=== PATIENT | male | born 1965 | race African-American/Black ===

== ENCOUNTER 2016-12-22 09:24 | Observation (INO) | payer MEDICARE, MEDICAID ==
[~2016-12-22] VITALS: Ht 180.3 cm; Wt 142.4 kg
[~2016-12-22 09:24] MED LIST: ACARBOSE PO; ASPI-867; COR25 PO; FURO-151 PO; GABA-531 PO; HUM10VIA6 SQ; HYDR-523 PO; LISI-604 PO; LOSA25TA12; METO25TA6 PO; METO5TAB99 PO; NITR0.4T3 SL; OMEP40CA34 PO; SIMV20TA6 PO; SITA100T6 PO
[2016-12-22] MEDS ORDERED: ALBUTEROL (0.083%) 2.5MG/3ML NEB HHN STA (10:22)
[2016-12-22] MEDS ORDERED: NITROGLYCERIN OINT 1GM/INCH UDPKT TD ONE (10:30)
[2016-12-22] MEDS ORDERED: FUROSEMIDE 40MG/4ML VIAL IV ONE (10:30)
[2016-12-22] MEDS ORDERED: ASPIRIN 81MG TABLET PO ONE (10:30)
[2016-12-22 10:35] LABS: BASOPHILS % 0.7 % (0.0-2.0); EOSINOPHILS % 0.9 % (0.0-5.0); HEMOGLOBIN. 14.8 g/dL (14.0-18.0); LYMPHOCYTES % 19.5 % (20.0-50.0); MEAN CORPUSCULAR HEMOGLOBIN 26.5 pg (28.0-32.0); MEAN CORPUSCULAR VOLUME 82.5 fL (80.0-94.0); MEAN PLATELET VOLUME 9.5 fl (7.4-10.4); MONOCYTES % 7.3 % (2.0-8.0); NEUTROPHILS % 71.6 % (40.0-76.0); PLATELET 173 x1000/uL (130-400); RED BLOOD CELL COUNT 5.58 mill/uL (4.7-6.1); RED CELL DISTRIBUTION WIDTH 16.5 % (11.6-14.6)
[2016-12-22 10:41] LABS: D-DIMER 1.58 mg/L FEU (<0.50); INR 1.1; PROTHROMBIN TIME 11.8 sec
[2016-12-22 10:42] LABS: CARBON DIOXIDE 23 mEq/L (21-32); CHLORIDE 110 mEq/L (98-107); ETHANOL BLOOD < 10 mg/dL
[2016-12-22 10:48] LABS: TROPONIN I 0.27 ng/mL (0.00-0.04)
[2016-12-22 11:41] LABS: CLARITY URINE CLEAR (CLEAR); COLOR URINE YELLOW (YELLOW); GLUCOSE URINE NEGATIVE (NEGATIVE); KETONES URINE NEGATIVE (NEGATIVE); LEUKOCYTE ESTERASE URINE NEGATIVE (NEGATIVE); NITRITE URINE NEGATIVE (NEGATIVE); OCCULT BLOOD URINE NEGATIVE (NEGATIVE); PROTEIN URINE NEGATIVE (NEGATIVE); SPECIFIC GRAVITY URINE 1.008 (1.005-1.030)
[2016-12-22 11:53] LABS: *AMPHETAMINES SCREEN URINE NEGATIVE (NEGATIVE); *BARBITURATES SCREEN URINE NEGATIVE (NEGATIVE); *BENZODIAZEPINES SCREEN URINE NEGATIVE (NEGATIVE); *COCAINE SCREEN URINE PRESUMTIVE POSITIVE (NEGATIVE); CANNABINOID URINE SCREEN NEGATIVE (NEGATIVE); METHADONE URINE SCREEN NEGATIVE (NEGATIVE); OPIATES URINE SCREEN NEGATIVE (NEGATIVE); PHENCYCLIDINE URINE SCREEN NEGATIVE (NEGATIVE)
[2016-12-22] MEDS ORDERED: HYDROCODONE/ACETAMINOPHEN 5/325MG TABLET PO PRN (14:45)
[2016-12-22] MEDS ORDERED: CLONIDINE 0.1MG TABLET PO PRN (14:45)
[2016-12-22] MEDS ORDERED: FUROSEMIDE 40MG/4ML VIAL IV SCH (14:45)
[2016-12-22] MEDS ORDERED: ONDANSETRON HCL 4MG/2ML VIAL IV PRN (14:45)
[2016-12-22] MEDS ORDERED: ACETAMINOPHEN 325MG TABLET PO PRN (14:45)
[2016-12-22] MEDS ORDERED: ENOXAPARIN 40MG/0.4ML SYR SUBCUT SCH (14:45)
[2016-12-22 16:10] LABS: CHLORIDE 110 mEq/L (98-107)
[2016-12-22 16:16] LABS: CARBON DIOXIDE 27 mEq/L (21-32)
[2016-12-22 16:28] VITALS: BP 139/104
[2016-12-22] MEDS ORDERED: ASPI-1035 PO (17:15)
[2016-12-22] MEDS: POTASSIUM CHLORIDE 20MEQ TABLET SR PO SCH (17:25)
[2016-12-22] MEDS: FUROSEMIDE 40MG/4ML VIAL IV SCH (17:25)
[2016-12-22] MEDS: METHYLPREDNISOLONE SOD SUCC 40 MG/ML VIAL IV SCH (17:25)
[2016-12-22] MEDS ORDERED: LEVOFLOXACIN 500MG PREMIX 100 ML IV SCH (18:00)
[2016-12-22] MEDS ORDERED: DEXTROSE 50% WATER 50ML SYRINGE IV PRN (19:30)
[2016-12-22 20:00] VITALS: BP 117/84
[2016-12-22] MEDS: AMLODIPINE 2.5MG TABLET PO SCH (20:57)
[2016-12-22] MEDS: ENOXAPARIN 40MG/0.4ML SYR SUBCUT SCH (20:58)
[2016-12-22] MEDS: NITROGLYCERIN OINT 1GM/INCH UDPKT TD SCH (20:58)
[2016-12-22] MEDS: INSULIN LISPRO 100 UNITS/ML SUBCUT SCH (21:00)
[2016-12-22] MEDS: BLOOD SUGAR DIAGNOSTIC STRIP TEST SCH (21:02)
[2016-12-22 22:38] LABS: TROPONIN I 0.25 ng/mL (0.00-0.04)
[2016-12-23] VITALS: BP 120/92
[2016-12-23] MEDS: IPRATROPIUM/ALBUTEROL 0.5-3(2.5)MG/3ML NEB INH PRN ×4 (02:08→16:09)
[2016-12-23 04:00] VITALS: BP 116/77
[2016-12-23] MEDS: NITROGLYCERIN OINT 1GM/INCH UDPKT TD SCH (06:10)
[2016-12-23] MEDS: BLOOD SUGAR DIAGNOSTIC STRIP TEST SCH ×4 (06:10→20:45)
[2016-12-23] MEDS: INSULIN LISPRO 100 UNITS/ML SUBCUT SCH ×4 (06:19→21:09)
[2016-12-23 06:44] LABS: BASOPHILS % 0.1 % (0.0-2.0); HEMATOCRIT. 42.1 % (42.0-52.0); HEMOGLOBIN. 13.5 g/dL (14.0-18.0); LYMPHOCYTES % 10.7 % (20.0-50.0); MEAN CORPUSCULAR HEMOGLOBIN 26.3 pg (28.0-32.0); MEAN CORPUSCULAR VOLUME 82.1 fL (80.0-94.0); MEAN PLATELET VOLUME 9.8 fl (7.4-10.4); MONOCYTES % 3.9 % (2.0-8.0); NEUTROPHILS % 85.3 % (40.0-76.0); PLATELET 161 x1000/uL (130-400); RED BLOOD CELL COUNT 5.12 mill/uL (4.7-6.1); RED CELL DISTRIBUTION WIDTH 16.4 % (11.6-14.6)
[2016-12-23 06:50] LABS: CHLORIDE 107 mEq/L (98-107)
[2016-12-23 07:08] LABS: CARBON DIOXIDE 26 mEq/L (21-32); CREATINE KINASE 98 IU/L (39-308); HDL CHOLESTEROL 48 mg/dL (40-59); LDL CHOLESTEROL 78 mg/dL (5-100); T4 FREE 1.09 ng/dL (0.76-1.46); TROPONIN I 0.24 ng/mL (0.00-0.04)
[2016-12-23 08:00] VITALS: BP 132/98
[2016-12-23] MEDS: ASPIRIN 81MG EC TABLET PO SCH (08:23)
[2016-12-23] MEDS: ENOXAPARIN 40MG/0.4ML SYR SUBCUT SCH ×2 (08:23→20:55)
[2016-12-23] MEDS: METHYLPREDNISOLONE SOD SUCC 40 MG/ML VIAL IV SCH ×2 (08:23→16:54)
[2016-12-23] MEDS: FUROSEMIDE 40MG/4ML VIAL IV SCH ×2 (08:23→16:54)
[2016-12-23] MEDS: POTASSIUM CHLORIDE 20MEQ TABLET SR PO SCH ×2 (08:24→16:54)
[2016-12-23] MEDS: AMLODIPINE 2.5MG TABLET PO SCH ×2 (08:25→20:55)
[2016-12-23] MEDS: GUAIFENESIN 200MG/10ML SUGAR FREE UDC PO PRN ×3 (08:55→20:54)
[2016-12-23 12:00] VITALS: BP 115/81
[2016-12-23 12:28] LABS: PLATELET ESTIMATE NORMAL
[2016-12-23] MEDS: NITROGLYCERIN 2% 30 GM OINT. TOP SCH ×2 (14:27→21:01)
[2016-12-23 16:00] VITALS: BP 117/80
[2016-12-23] MEDS ORDERED: LEVOFLOXACIN 500MG PREMIX 100 ML IV SCH (18:00)
[2016-12-23 20:00] VITALS: BP 114/75
[2016-12-24] VITALS: BP 123/82
[2016-12-24 04:00] VITALS: BP 108/74
[2016-12-24 06:28] LABS: HEMATOCRIT. 44.5 % (42.0-52.0); HEMOGLOBIN. 14.3 g/dL (14.0-18.0); LYMPHOCYTES % 9.5 % (20.0-50.0); MEAN CORPUSCULAR HEMOGLOBIN 26.5 pg (28.0-32.0); MEAN CORPUSCULAR VOLUME 82.5 fL (80.0-94.0); MEAN PLATELET VOLUME 9.8 fl (7.4-10.4); MONOCYTES % 6.2 % (2.0-8.0); NEUTROPHILS % 84.3 % (40.0-76.0); PLATELET 179 x1000/uL (130-400); RED CELL DISTRIBUTION WIDTH 16.8 % (11.6-14.6)
[2016-12-24] MEDS: BLOOD SUGAR DIAGNOSTIC STRIP TEST SCH ×2 (06:28→12:02)
[2016-12-24] MEDS: NITROGLYCERIN 2% 30 GM OINT. TOP SCH ×2 (06:32→13:15)
[2016-12-24] MEDS: INSULIN LISPRO 100 UNITS/ML SUBCUT SCH ×2 (06:37→12:21)
[2016-12-24 07:26] LABS: CARBON DIOXIDE 28 mEq/L (21-32); CHLORIDE 105 mEq/L (98-107); TROPONIN I 0.23 ng/mL (0.00-0.04)
[2016-12-24] MEDS: IPRATROPIUM/ALBUTEROL 0.5-3(2.5)MG/3ML NEB INH PRN (07:48)
[2016-12-24 08:00] VITALS: BP 105/76
[2016-12-24] MEDS: FUROSEMIDE 40MG/4ML VIAL IV SCH (08:34)
[2016-12-24] MEDS: METHYLPREDNISOLONE SOD SUCC 40 MG/ML VIAL IV SCH (08:34)
[2016-12-24] MEDS: ASPIRIN 81MG EC TABLET PO SCH (08:35)
[2016-12-24] MEDS: ENOXAPARIN 40MG/0.4ML SYR SUBCUT SCH (08:35)
[2016-12-24] MEDS: POTASSIUM CHLORIDE 20MEQ TABLET SR PO SCH (08:35)
[2016-12-24] MEDS: AMLODIPINE 2.5MG TABLET PO SCH (08:35)
[2016-12-24] MEDS: GUAIFENESIN 200MG/10ML SUGAR FREE UDC PO PRN (10:16)
[2016-12-24 10:21] VITALS: BP 106/82
[2016-12-24 12:00] VITALS: BP 106/82
== END 2016-12-24 14:52 | disposition home or self-care (01) ==
LOC: ER 11:05 → 5WST 11:06 → INTOOBSV 11:06
PROVIDERS: ADMIT Internal Medicine; ATTEND Internal Medicine
DX: R06.02 Shortness of breath (principal); J44.1 Chronic obstructive pulmonary disease with (acute) exacerbation; I11.0 Hypertensive heart disease with heart failure; I50.9 Heart failure, unspecified; E78.5 Hyperlipidemia, unspecified; E78.00 Pure hypercholesterolemia, unspecified; F14.10 Cocaine abuse, uncomplicated; E87.6 Hypokalemia; Z91.19 Patient's noncompliance with other medical treatment and regimen; E66.09 Other obesity due to excess calories; F17.200 Nicotine dependence, unspecified, uncomplicated; Z68.32 Body mass index [BMI] 32.0-32.9, adult; Z79.4 Long term (current) use of insulin; Z91.14 Patient's other noncompliance with medication regimen; E11.9 Type 2 diabetes mellitus without complications
CPT/HCPCS: 36415; 71010; 78580; 80048; 80053; 80061; 80305; 81003; 82550; 82962; 83880; 84439; 84443; 84484; 85025; 85379; 85610; 93005; 93306; 93970; 94640; 94664; 96365; 96366; 96372; 96375; 96376; 99285; A9540; G0378; G0482; J1650; J1815; J1940; J1956; J2920; J7050; J7611; 96374; J7620

== ENCOUNTER 2017-03-26 10:09 | Observation (INO) | payer MEDICARE, MEDICAID ==
[~2017-03-26] VITALS: Ht 180.3 cm; Wt 130.6 kg
[~2017-03-26 10:09] MED LIST changes: +ASPI-1159 PO; -ASPI-867; -NITR0.4T3 SL; +NITR0.4T49 SL; +SITA100T11 PO; -SITA100T6 PO
[2017-03-26] MEDS ORDERED: ALBUTEROL (0.083%) 2.5MG/3ML NEB HHN STA (10:56)
[2017-03-26] MEDS ORDERED: IPRATROPIUM BROMIDE (0.02%) 0.5MG/2.5ML NEB HHN STA (10:56)
[2017-03-26 11:16] LABS: INR 1.1; PROTHROMBIN TIME 11.8 sec (9.4-11.6)
[2017-03-26 11:18] LABS: CHLORIDE 105 mEq/L (98-107)
[2017-03-26 11:22] LABS: BASOPHILS % 0.5 % (0.0-2.0); HEMOGLOBIN. 15.3 g/dL (14.0-18.0); MEAN CORPUSCULAR HEMOGLOBIN 26.9 pg (28.0-32.0); MEAN CORPUSCULAR VOLUME 82.4 fL (80.0-94.0); MEAN PLATELET VOLUME 9.7 fl (7.4-10.4); MONOCYTES % 5.7 % (2.0-8.0); NEUTROPHILS % 69.8 % (40.0-76.0); PLATELET 190 x1000/uL (130-400); RED CELL DISTRIBUTION WIDTH 17.4 % (11.6-14.6)
[2017-03-26 11:24] LABS: CARBON DIOXIDE 25 mEq/L (21-32)
[2017-03-26 11:28] LABS: TROPONIN I 0.39 ng/mL (0.00-0.04)
[2017-03-26] MEDS ORDERED: ASPIRIN 325MG EC TABLET PO ONE (12:00)
[2017-03-26] MEDS ORDERED: FUROSEMIDE 40MG/4ML VIAL IVP ONE (12:00)
[2017-03-26 15:00] VITALS: BP 129/101
[2017-03-26] MEDS ORDERED: PNEUMOCOCCAL 23-VAL P-SAC VAC 0.5 ML IM ONE (16:30)
[2017-03-26] MEDS ORDERED: AZIT250T6 PO (16:32)
[2017-03-26] MEDS ORDERED: NITROGLYCERIN 0.4MG TABLET SL SL PRN (18:00)
[2017-03-26] MEDS ORDERED: DEXTROSE 50% WATER 50ML SYRINGE IV PRN (18:45)
[2017-03-26] MEDS: POTASSIUM CHLORIDE 20MEQ TABLET SR PO SCH (19:04)
[2017-03-26] MEDS: GABAPENTIN 300MG CAPSULE PO SCH (19:04)
[2017-03-26] MEDS: LISINOPRIL 20MG TABLET PO SCH (19:05)
[2017-03-26 20:00] VITALS: BP 119/77
[2017-03-26] MEDS: IPRATROPIUM/ALBUTEROL 0.5-3(2.5)MG/3ML NEB HHN SCH (20:04)
[2017-03-26] MEDS: INSULIN LISPRO 100 UNITS/ML SUBCUT SCH (21:00)
[2017-03-26] MEDS: BLOOD SUGAR DIAGNOSTIC STRIP TEST SCH (21:04)
[2017-03-26] MEDS: ATORVASTATIN CALCIUM 10MG TABLET PO SCH (21:07)
[2017-03-26] MEDS: METHYLPREDNISOLONE SOD SUCC 40 MG/ML VIAL IV SCH (21:07)
[2017-03-27] VITALS: BP 122/84
[2017-03-27] MEDS: IPRATROPIUM/ALBUTEROL 0.5-3(2.5)MG/3ML NEB HHN SCH ×6 (00:04→20:53)
[2017-03-27 01:05] LABS: *AMPHETAMINES SCREEN URINE NEGATIVE (NEGATIVE); *BARBITURATES SCREEN URINE NEGATIVE (NEGATIVE); *BENZODIAZEPINES SCREEN URINE NEGATIVE (NEGATIVE); *COCAINE SCREEN URINE PRESUMTIVE POSITIVE (NEGATIVE); CANNABINOID URINE SCREEN NEGATIVE (NEGATIVE); METHADONE URINE SCREEN NEGATIVE (NEGATIVE); OPIATES URINE SCREEN PRESUMTIVE POSITIVE (NEGATIVE); PHENCYCLIDINE URINE SCREEN NEGATIVE (NEGATIVE)
[2017-03-27 04:00] VITALS: BP 119/83
[2017-03-27] MEDS: BLOOD SUGAR DIAGNOSTIC STRIP TEST SCH ×4 (06:14→20:41)
[2017-03-27] MEDS: INSULIN LISPRO 100 UNITS/ML SUBCUT SCH ×4 (06:15→21:00)
[2017-03-27 06:19] LABS: BASOPHILS % 0.2 % (0.0-2.0); HEMATOCRIT. 47.6 % (42.0-52.0); HEMOGLOBIN. 15.4 g/dL (14.0-18.0); LYMPHOCYTES % 10.1 % (20.0-50.0); MEAN CORPUSCULAR HEMOGLOBIN 26.8 pg (28.0-32.0); MEAN CORPUSCULAR VOLUME 82.7 fL (80.0-94.0); MEAN PLATELET VOLUME 9.6 fl (7.4-10.4); NEUTROPHILS % 87.7 % (40.0-76.0); PLATELET 181 x1000/uL (130-400); RED BLOOD CELL COUNT 5.76 mill/uL (4.7-6.1); RED CELL DISTRIBUTION WIDTH 17.4 % (11.6-14.6)
[2017-03-27 07:22] LABS: CARBON DIOXIDE 21 mEq/L (21-32); CHLORIDE 104 mEq/L (98-107)
[2017-03-27 07:25] LABS: HDL CHOLESTEROL 53 mg/dL (40-59); LDL CHOLESTEROL 120 mg/dL (5-100)
[2017-03-27 08:10] VITALS: BP 114/81
[2017-03-27] MEDS: GABAPENTIN 300MG CAPSULE PO SCH ×2 (08:25→17:18)
[2017-03-27] MEDS: LOSARTAN POTASSIUM 25 MG TABLET PO SCH ×2 (08:26→17:18)
[2017-03-27] MEDS: METHYLPREDNISOLONE SOD SUCC 40 MG/ML VIAL IV SCH ×2 (08:26→20:39)
[2017-03-27] MEDS: ASPIRIN 81MG EC TABLET PO SCH (08:26)
[2017-03-27] MEDS: METOLAZONE 10MG TABLET PO SCH (08:26)
[2017-03-27] MEDS: LISINOPRIL 20MG TABLET PO SCH (08:26)
[2017-03-27] MEDS: FAMOTIDINE 20MG TABLET PO SCH ×2 (08:27→20:39)
[2017-03-27] MEDS: POTASSIUM CHLORIDE 20MEQ TABLET SR PO SCH (08:27)
[2017-03-27] MEDS: LINAGLIPTIN 5MG TABLET PO SCH (08:27)
[2017-03-27] MEDS: CARVEDILOL 25MG TABLET PO SCH ×2 (08:28→20:41)
[2017-03-27] MEDS: ENOXAPARIN 40MG/0.4ML SYR SUBCUT SCH ×2 (08:28→20:40)
[2017-03-27] MEDS ORDERED: FUROSEMIDE 40MG TABLET PO SCH (09:00)
[2017-03-27 11:00] VITALS: BP 117/93
[2017-03-27 15:20] VITALS: BP 113/78
[2017-03-27] MEDS: FUROSEMIDE 40MG/4ML VIAL IVP SCH (15:29)
[2017-03-27] MEDS: HYDROCODONE/ACETAMINOPHEN 5/325MG TABLET PO PRN (15:38)
[2017-03-27 20:00] VITALS: BP 105/65
[2017-03-27] MEDS: ATORVASTATIN CALCIUM 10MG TABLET PO SCH (20:39)
[2017-03-28] VITALS: BP 110/67
[2017-03-28] MEDS: IPRATROPIUM/ALBUTEROL 0.5-3(2.5)MG/3ML NEB HHN SCH ×6 (00:23→21:30)
[2017-03-28 04:00] VITALS: BP 108/75
[2017-03-28] MEDS: BLOOD SUGAR DIAGNOSTIC STRIP TEST SCH ×4 (05:45→21:59)
[2017-03-28] MEDS: INSULIN LISPRO 100 UNITS/ML SUBCUT SCH ×4 (06:38→21:00)
[2017-03-28 08:30] VITALS: BP 140/88
[2017-03-28] MEDS: FAMOTIDINE 20MG TABLET PO SCH ×2 (08:36→21:54)
[2017-03-28] MEDS: LOSARTAN POTASSIUM 25 MG TABLET PO SCH ×2 (08:36→17:27)
[2017-03-28] MEDS: CARVEDILOL 25MG TABLET PO SCH ×2 (08:37→21:54)
[2017-03-28] MEDS: POTASSIUM CHLORIDE 20MEQ TABLET SR PO SCH (08:37)
[2017-03-28] MEDS: GABAPENTIN 300MG CAPSULE PO SCH ×2 (08:37→17:27)
[2017-03-28] MEDS: METOLAZONE 10MG TABLET PO SCH (08:37)
[2017-03-28] MEDS: LISINOPRIL 20MG TABLET PO SCH (08:37)
[2017-03-28] MEDS: LINAGLIPTIN 5MG TABLET PO SCH (08:38)
[2017-03-28] MEDS: METHYLPREDNISOLONE SOD SUCC 40 MG/ML VIAL IV SCH ×2 (08:38→21:59)
[2017-03-28] MEDS: FUROSEMIDE 40MG/4ML VIAL IVP SCH (08:38)
[2017-03-28] MEDS: ENOXAPARIN 40MG/0.4ML SYR SUBCUT SCH ×2 (08:38→21:55)
[2017-03-28] MEDS: ASPIRIN 81MG EC TABLET PO SCH (08:38)
[2017-03-28] MEDS: HYDROCODONE/ACETAMINOPHEN 5/325MG TABLET PO PRN ×2 (08:56→21:53)
[2017-03-28 12:00] VITALS: BP 104/73
[2017-03-28 16:00] VITALS: BP 97/63
[2017-03-28] MEDS: FUROSEMIDE 100MG/10ML VIAL IVP SCH (17:28)
[2017-03-28 20:00] VITALS: BP 110/59
[2017-03-28] MEDS: ATORVASTATIN CALCIUM 10MG TABLET PO SCH (21:53)
[2017-03-29] VITALS: BP 111/61
[2017-03-29] MEDS: IPRATROPIUM/ALBUTEROL 0.5-3(2.5)MG/3ML NEB HHN SCH ×4 (00:42→13:07)
[2017-03-29 04:00] VITALS: BP 100/57
[2017-03-29] MEDS: INSULIN LISPRO 100 UNITS/ML SUBCUT SCH ×2 (05:34→12:15)
[2017-03-29] MEDS: BLOOD SUGAR DIAGNOSTIC STRIP TEST SCH ×2 (05:34→12:01)
[2017-03-29 07:13] LABS: HEMATOCRIT. 49.1 % (42.0-52.0); HEMOGLOBIN. 15.8 g/dL (14.0-18.0); MEAN CORPUSCULAR HEMOGLOBIN 26.7 pg (28.0-32.0); MEAN PLATELET VOLUME 9.8 fl (7.4-10.4); PLATELET 196 x1000/uL (130-400); RED BLOOD CELL COUNT 5.92 mill/uL (4.7-6.1); RED CELL DISTRIBUTION WIDTH 17.4 % (11.6-14.6)
[2017-03-29 07:48] LABS: CARBON DIOXIDE 29 mEq/L (21-32); CHLORIDE 100 mEq/L (98-107)
[2017-03-29 08:00] VITALS: BP 97/71
[2017-03-29] MEDS: METHYLPREDNISOLONE SOD SUCC 40 MG/ML VIAL IV SCH (08:28)
[2017-03-29] MEDS: POTASSIUM CHLORIDE 20MEQ TABLET SR PO SCH (08:28)
[2017-03-29] MEDS: FUROSEMIDE 100MG/10ML VIAL IVP SCH (08:28)
[2017-03-29] MEDS: METOLAZONE 10MG TABLET PO SCH (08:35)
[2017-03-29] MEDS: LINAGLIPTIN 5MG TABLET PO SCH (08:35)
[2017-03-29] MEDS: ASPIRIN 81MG EC TABLET PO SCH (08:35)
[2017-03-29] MEDS: GABAPENTIN 300MG CAPSULE PO SCH (08:35)
[2017-03-29] MEDS: FAMOTIDINE 20MG TABLET PO SCH (08:35)
[2017-03-29] MEDS: HYDROCODONE/ACETAMINOPHEN 5/325MG TABLET PO PRN (08:39)
[2017-03-29] MEDS: CARVEDILOL 25MG TABLET PO SCH (08:46)
[2017-03-29] MEDS: LISINOPRIL 20MG TABLET PO SCH (08:48)
[2017-03-29] MEDS: LOSARTAN POTASSIUM 25 MG TABLET PO SCH (08:48)
[2017-03-29] MEDS: ENOXAPARIN 40MG/0.4ML SYR SUBCUT SCH (08:54)
[2017-03-29] MEDS ORDERED: ASPIRIN 81MG EC TABLET PO SCH (09:00)
[2017-03-29 12:00] VITALS: BP 95/59
[2017-03-29 14:25] VITALS: BP 95/59
[2017-03-29 14:59] LABS: PLATELET ESTIMATE NORMAL
== END 2017-03-29 15:00 | disposition home or self-care (01) ==
LOC: ER 11:12 → 5WST 11:59 → INTOOBSV 11:59 → ENRESERV 14:30 → EDBEDREQ 15:11 → 5WST 15:29
PROVIDERS: ADMIT Internal Medicine; ATTEND Internal Medicine
DX: I24.9 Acute ischemic heart disease, unspecified (principal); E87.6 Hypokalemia; F14.10 Cocaine abuse, uncomplicated; E11.9 Type 2 diabetes mellitus without complications; J44.1 Chronic obstructive pulmonary disease with (acute) exacerbation; G47.33 Obstructive sleep apnea (adult) (pediatric); E78.00 Pure hypercholesterolemia, unspecified; I11.0 Hypertensive heart disease with heart failure; I50.9 Heart failure, unspecified; E66.01 Morbid (severe) obesity due to excess calories; Z68.41 Body mass index [BMI] 40.0-44.9, adult; Z23 Encounter for immunization; E78.5 Hyperlipidemia, unspecified; Z72.0 Tobacco use; Z79.4 Long term (current) use of insulin
CPT/HCPCS: 36415; 71010; 80048; 80053; 80061; 80305; 82962; 83735; 83880; 84132; 84484; 85025; 85610; 90471; 93005; 93306; 94640; 94664; 96372; 96374; 96375; 96376; 99285; C1893; G0378; J1650; J1815; J1940; J2920; J7611; 90732; J7620